=== PATIENT | male | born 1970 | race Caucasian/White ===

== ENCOUNTER 2022-07-28 09:05 | Outpatient (CLI) | payer BC | END 2022-07-28 09:06 | disposition home or self-care (01) | LOC: TBSIIMAG 09:05 | PROVIDERS: ATTEND Neurological Surgery | DX: M47.26 Other spondylosis with radiculopathy, lumbar region (principal); M51.16 Intervertebral disc disorders with radiculopathy, lumbar region; M48.061 Spinal stenosis, lumbar region without neurogenic claudication; M48.07 Spinal stenosis, lumbosacral region; M51.37 Other intervertebral disc degeneration, lumbosacral region | CPT/HCPCS: 72148 ==